=== PATIENT | female | born 1985 | race Caucasian/White ===

== ENCOUNTER 2016-04-09 15:58 | Inpatient (IN) | payer OTHER ==
[~2016-04-09] VITALS: Ht 167.6 cm; Wt 76.2 kg
[2016-04-09 16:23] VITALS: BP 103/68
--- NOTE | 2016-04-09 16:30 | NUR ---
AUDRA CUEVAS FROM OB IN TRIAGE ASSESSING HEART TONE
--- NOTE | 2016-04-09 16:31 | NUR ---
HR [id number]
--- NOTE | 2016-04-09 19:22 | NUR ---
PT TAKEN TO OF
--- NOTE | 2016-04-09 19:30 | NUR ---
30 Y/O F 15 WKS C/O ABD PAIN, N/V X 1 DAY. DENIES ANY FEVER. NO DISTRESS NOTED AT THE MOMENT. ER MD NOTIFIED.
--- NOTE | 2016-04-09 19:31 | NUR ---
PT MOVED TO BED 7
--- NOTE | 2016-04-09 19:44 | NUR ---
Dr. Tovar evaluating patient at bedside.
[2016-04-09] MEDS ORDERED: NACL 0.9% 1,000 ML IV ONE ×2 (19:56→21:50)
[2016-04-09] MEDS ORDERED: ONDANSETRON 4 MG/2 ML VIAL IVP ONE (20:00)
--- NOTE | 2016-04-09 20:24 | NUR ---
PT IN BED RESTING, VERBALIZED FEELING BETTER, NO NAUSEA PRESENT AT THE MOMENT, AND STATES HER PAIN LEVEL HAS DECREASED TO 3/10. NO DISTRESS NOTED AT THIS MOMENT.
--- NOTE | 2016-04-09 20:38 | NUR ---
Ultrasound at bedside.
[2016-04-09] MEDS ORDERED: METOCLOPRAMIDE 10 MG/2 ML INJ VIAL IVP ONE (21:35)
[2016-04-09] MEDS ORDERED: DEXT 5% / NACL 0.9% 1,000 ML IV SCH (21:35)
[2016-04-09] MEDS ORDERED: ONDANSETRON 4 MG/2 ML VIAL IVP PRN (21:50)
[2016-04-09] MEDS ORDERED: METOCLOPRAMIDE 10 MG/2 ML INJ VIAL ONE (21:56)
--- NOTE | 2016-04-09 22:17 | NUR ---
Patient will be admitted to care of . Admited to TELEMETRY. Will go to room 116. Belongings list completed. Report to FAITH GARDINER
[2016-04-09 22:30] VITALS: BP 96/63
--- NOTE | 2016-04-09 22:30 | NUR ---
RECEIVED REPORT FROM AUDRA CUEVAS. PATIENT ARRIVED TO UNIT FROM ED. PATIENT BROUGHT BY ELIZABETH. PATIENT ABLE TO AMBULATE TO BED HERSELF. PATIENT IS AAOX4, ON ROOM AIR. SKIN CHECK DONE, INTACT. PATIENT CONNECTED TO TELE MONITOR, MRSA SWAB TAKEN, VITAL SIGNS STABLE. PATIENT STATES SHE FEELS A LITTLE NAUSEOUS. PATIENT HAS IV TO LH, PATENT AND INTACT. ORIENTED PATIENT TO ROOM AND CALL LIGHT, DISCUSSED PLAN OF CARE WITH PATIENT, PATIENT VERBALIZED UNDERSTANDING. SAFETY MEASURES CHECKED, CALL LIGHT WITHIN REACH. WILL CONTINUE TO MONITOR.
[2016-04-09] MEDS ORDERED: MAG SULF 2000 MG/WATER PREMIX 50 ML IV SCH (23:55)
[2016-04-10] VITALS: BP 91/60
--- NOTE | 2016-04-10 00:45 | NUR ---
ADMINISTERED PATIENTS MAG RIDER PER MD ORDER AND ADMINISTERED TUMS FOR PATIENT C/O HEART BURN. NO SOB OR SIGN OF DISTRESS, CALL LIGHT WITHIN REACH. WILL CONTINUE TO MONITOR. PROVIDED PATIENT WITH JELLO, WILL MONITOR PATIENT FOR NAUSEA.
[2016-04-10] MEDS: CALCIUM CARBONATE 500 MG TAB.CHEW PO SCH ×3 (00:46→20:46)
--- NOTE | 2016-04-10 02:00 | NUR ---
PATIENT SLEEPING, NO SOB OR SIGN OF DISTRESS, CALL LIGHT WITHIN REACH. WILL CONTINUE TO MONITOR.
[2016-04-10 04:00] VITALS: BP 102/63
--- NOTE | 2016-04-10 04:20 | NUR ---
VITAL SIGNS STABLE, PATIENT AMBULATED TO RESTROOM. PATIENT STATES, SHE HAS BEEN EATING JELLO SLOWLY AND ABLE TO TOLERATE. NO SOB OR SIGN OF DISTRESS, CALL LIGHT WITHIN REACH, WILL CONTINUE TO MONITOR.
--- NOTE | 2016-04-10 06:00 | NUR ---
PATIENT SLEEPING, CALL LIGHT WITHIN REACH. WILL CONTINUE TO MONITOR.
--- NOTE | 2016-04-10 07:15 | NUR ---
ENDORSED PATIENT TO DAY RN AT BEDSIDE, PATIENT IN STABLE CONDITION.
--- NOTE | 2016-04-10 07:16 | NUR ---
RECEIVED REPORT FROM FAITH GARDINER. PT IS AAOX4, PT ON ROOM AIR WITH NO S/S OF DISTRESS NOTED. IV TO LEFT HAND #22, PATENT AND INTACT. NO N/V OR PAIN INDICATED. SKIN INTACT. ALL SAFETY PRECAUTIONS IN PLACE, SIDE RAILSX2, AND BED IN LOW POSITION. WILL PERFORM FREQUENT ROUNDS.
[2016-04-10 07:56] VITALS: BP 96/68
[2016-04-10] MEDS: DOCUSATE SODIUM 100 MG GELCAP PO SCH (08:32)
[2016-04-10] MEDS: ACETAMINOPHEN EXTRA STRENGTH 500 MG TAB PO PRN ×2 (08:33→18:31)
--- NOTE | 2016-04-10 08:34 | NUR ---
ADMINISTERED MEDICATIONS ORDERED. PT TOLERATED WELL. PT C/O 10/ PAIN TO HEAD, ADMINISTERED TYLENOL ORDERED. WILL CONTINUE TO MONITOR.
--- NOTE | 2016-04-10 09:46 | NUR ---
PATIENT HAS BEEN SCREENED AND CATEGORIZED MODERATE NUTRITION RISK. PATIENT WILL BE SEEN WITHIN 3-5 DAYS OF ADMISSION. 04/12/16-04/14/[address]
--- NOTE | 2016-04-10 10:22 | NUR ---
PT RESTING WITH NO DISTRESS NOTED AT THIS TIME.
--- NOTE | 2016-04-10 11:40 | NUR ---
TALKED TO PT, PT TAKING MACROBID PRIOR TO ADMISSION. NOTIFIED DR IGLESIAS. NO ORDERS RECEIVED AT THIS TIME. WILL CONTINUE TO MONITOR.
[2016-04-10 12:00] VITALS: BP 93/58
--- NOTE | 2016-04-10 12:00 | NUR ---
TALKED TO PT. PT REFUSED INFLUENZA VACCINE. PT STATED SHE GETS SICK EVERY TIME.
--- NOTE | 2016-04-10 12:45 | NUR ---
DAILYNN RN (LABOR AND DELIVERY NURSE), CHECKED PT'S FHR. FHR AT 145.
--- NOTE | 2016-04-10 13:00 | NUR ---
DR Deana GREER IN TO SEE PT. WILL FOLLOW UP ON ORDERS. Addendum: 04/10/16 at 1438 by Berta Garibay RN [place] RABIA MD FOR PT TO BE DISCHARGED. PT TO FOLLOW UP WITH MD WITHIN ONE WEEK AFTER DISCHARGE.
[2016-04-10 15:45] VITALS: BP 95/56
--- NOTE | 2016-04-10 15:47 | NUR ---
PT RESTING WITH NO DISTRESS NOTED. PT STATED SHE IS ABLE TO TOLERATE FOOD AND FEEL MUCH BETTER. FAMILY PRESENT AT BEDSIDE.
--- NOTE | 2016-04-10 16:50 | NUR ---
TALKED TO DR HARRIS MD MADE AWARE OF Denise SIMMS PLAN OF CARE. OK PER DR GREER FOR PT TO BE DISCHARGED AND FOLLOW UP AT HIS OFFICE IN ONE WE. DR IGLESIAS MADE AWARE.
[2016-04-10] MEDS ORDERED: MAG SULF 2000 MG/WATER PREMIX 50 ML IV SCH (17:33)
[2016-04-10] MEDS ORDERED: NITROFURANTOIN 100 MG CAP PO SCH ×2 (17:35→18:20)
--- NOTE | 2016-04-10 17:52 | NUR ---
TALKED TO DR IGLESIAS. PT RECEIVED MAGNESIUM LAST NIGHT. MD TO CANCEL ORDER.
--- NOTE | 2016-04-10 17:54 | NUR ---
DR IGLESIAS IN TO SEE PT. WILL FOLLOW UP ON ORDERS.
[2016-04-10] MEDS ORDERED: NACL 0.9% 1,000 ML IV SCH (18:15)
--- NOTE | 2016-04-10 18:33 | NUR ---
PT TOLERATED MEDS WELL. PT C/O 10/11 HEADACHE. ADMINISTERED TYLENOL ORDERED. WILL CONTINUE TO MONITOR.
--- NOTE | 2016-04-10 19:15 | NUR ---
ENDORSED CARE TO FAITH GARDINER. PT IN STABLE CONDITION.
--- NOTE | 2016-04-10 19:20 | NUR ---
RECEIVED REPORT FROM DAY SHIFT RN AT BEDSIDE, PATIENT IS AAO X4 RESTING IN BED WITH FAMILY AT BEDSIDE. PATIENT IS ON ROOM AIR, WITH IV TO LH#22 WITH IVF INFUSING WELL. PATIENT DENIES NAUSEA AT THIS TIME. PATIENT C/O HEADACHE BUT PATIENT WAS ALREADY MEDICATED, WILL CONTINUE TO MONITOR. PATIENT IS ON TELE MONITOR, DISCUSSED PLAN OF CARE WITH PATIENT, PATIENT VERBALIZED UNDERSTANDING. SAFETY MEASURES CHECKED, CALL LIGHT WITHIN REACH. WILL CONTINUE TO MONITOR.
[2016-04-10 20:00] VITALS: BP 90/52
--- NOTE | 2016-04-10 20:48 | NUR ---
PM MEDS GIVEN, PATIENT TOLERATED WELL, CALL LIGHT WITHIN REACH. WILL CONTINUE TO MONITOR.
--- NOTE | 2016-04-10 21:41 | NUR ---
PATIENT STATES HEADACHE PAIN IS STILL THE SAME, OFFERED PATIENT OTHER THERAPEUTIC RELIEF MEASURES, PATIENT STATED SHE WAS OKAY AND WOULD BE FINE. WILL CONTINUE TO MONITOR.
[2016-04-11] VITALS: BP 101/54
--- NOTE | 2016-04-11 00:19 | NUR ---
PATIENT WAS SLEEPING, WOKE UP FOR VITALS, NO COMPLAINTS AT THIS TIME. VITAL SIGN STABLE, NO SIGN OF ACUTE DISTRESS, CALL LIGHT WITHIN REACH. WILL CONTINUE TO MONITOR.
--- NOTE | 2016-04-11 02:51 | NUR ---
HEART TONE OBTAINED BY L&D RN, RATE: 145
--- NOTE | 2016-04-11 02:56 | NUR ---
PATIENT VOMITED 20CC WATER, PATIENT STATES SHE IS A LITTLE NAUSEOUS. PAGED MD GUPTA FOR ANTINAUSEA MEDICATIONS, STATED SHE WILL PUT IN SOME ORDERS, WILL FOLLOW UP.
[2016-04-11] MEDS ORDERED: ONDANSETRON 4 MG/2 ML VIAL IVP PRN (03:00)
--- NOTE | 2016-04-11 03:14 | NUR ---
ADMINISTERED ZOFRAN PER MD ORDER, PATIENT TOLERATED WELL, WILL CONTINUE TO MONITOR.
--- NOTE | 2016-04-11 03:30 | NUR ---
PATIENT STATES SHE FEELS BETTER AND DOES NOT FEEL NAUSEOUS. WILL CONTINUE TO MONITOR.
[2016-04-11 04:00] VITALS: BP 92/56
--- NOTE | 2016-04-11 04:12 | NUR ---
VITAL SIGNS STABLE, PATIENT RESTING IN BED, NO NAUSEA AT THIS TIME, CALL LIGHT WITHIN REACH. WILL CONTINUE TO MONITOR.
--- NOTE | 2016-04-11 07:02 | NUR ---
MD HARVEY, OBGYN, IN TO SEE PATIENT. RECOMMENDED TO INCREASE PATIENTS FLUIDS IF PATIENT CAN NOT TOLERATE FOOD OR LIQUID.
--- NOTE | 2016-04-11 07:10 | NUR ---
ENDORSED PATIENT TO DAY SHIFT RN AT BEDSIDE, PATIENT IN STABLE CONDITION.
--- NOTE | 2016-04-11 07:11 | NUR ---
RECEIVED REPORT FROM UNIVERSAL BANKER NURSE. PT IS AAOX4, DENIES PAIN/DISCOMFORT AT THIS TIME. IV IS PATENT AND FLOWING. SKIN IS DRY AND INTACT. PT IS ON ROOM AIR, VITALS STABLE. CALL LIGHT WITHIN REACH. WILL CONTINUE TO MONITOR.
--- NOTE | 2016-04-11 07:25 | NUR ---
PT SEEN AND EVALUATED BY DR. GREER.
[2016-04-11] MEDS ORDERED: CALCIUM CARBONATE 500 MG TAB.CHEW PO SCH (07:36)
[2016-04-11 08:00] VITALS: BP 89/55
[2016-04-11] MEDS ORDERED: NITROFURANTOIN 100 MG CAP PO SCH ×2 (08:00)
[2016-04-11] MEDS ORDERED: METOCLOPRAMIDE 10 MG TAB PO PRN (08:00)
[2016-04-11] MEDS ORDERED: NITROFURANTOIN100 M3 PO (08:07)
[2016-04-11] MEDS ORDERED: METOCLOPRAMIDE10 M1 PO (08:13)
[2016-04-11] MEDS: DOCUSATE SODIUM 100 MG GELCAP PO SCH (08:24)
--- NOTE | 2016-04-11 08:26 | NUR ---
PT PABLITO MEDS WELL.
[2016-04-11] MEDS ORDERED: DICLEGIS 10 MG-1 TCP PO (08:38)
[2016-04-11] MEDS ORDERED: TYLENOL EXTRA500 M3 PO (08:39)
--- NOTE | 2016-04-11 09:45 | NUR ---
D/C ORDER IN. D/C INSTRUCTIONS GIVEN. PT SIGNED AND VERBALIZED UNDERSTANDING. PRESCRIPTIONS IN PT'S POSSESSION. REMINDED PT OF APT ON SUNDAY 04/16, PT STS SHE WILL SCHED AN APT. IV REMOVED WITH CANNULA INTACT, TELE MONITOR REMOVED, AND WRISTBAND REMOVED. PT WAS WHEELED OUT OF HOSPITAL IN STABLE CONDITION.
== END 2016-04-11 09:45 | disposition home or self-care (01) | DRG 781 ==
LOC: MED 15:58 → MTU 21:40 → EEVIPCON 21:40
PROVIDERS: ADMIT Family Medicine; ATTEND Family Medicine
DX: O21.1 Hyperemesis gravidarum with metabolic disturbance (principal); O23.42 Unspecified infection of urinary tract in pregnancy, second trimester; O25.12 Malnutrition in pregnancy, second trimester; O99.282 Endocrine, nutritional and metabolic diseases complicating pregnancy, second trimester; O99.612 Diseases of the digestive system complicating pregnancy, second trimester; K80.20 Calculus of gallbladder without cholecystitis without obstruction; E83.42 Hypomagnesemia; E83.51 Hypocalcemia; O99.012 Anemia complicating pregnancy, second trimester; D64.9 Anemia, unspecified; O99.352 Diseases of the nervous system complicating pregnancy, second trimester; G56.91 Unspecified mononeuropathy of right upper limb; Z80.8 Family history of malignant neoplasm of other organs or systems; Z3A.16 16 weeks gestation of pregnancy; Z68.27 Body mass index [BMI] 27.0-27.9, adult